=== PATIENT | male | born 1945 | race Caucasian/White ===

== ENCOUNTER 2021-03-31 12:26 | Outpatient (RCR) | payer MEDICARE | END 2021-04-03 | LOC: M PT 12:26 | PROVIDERS: ATTEND Internal Medicine Cardiovascular Disease | DX: I89.0 Lymphedema, not elsewhere classified (principal) ==

== ENCOUNTER → 2023-03-18 | Outpatient (REF) | payer MEDICARE | LOC: M SFHCPLAZ 07:09 | PROVIDERS: ATTEND Nurse Practitioner Family | DX: D48.9 Neoplasm of uncertain behavior, unspecified (principal) ==

== ENCOUNTER → 2023-05-26 | Outpatient (CLI) | payer MEDICARE ==
[~2023-05-26] MED LIST: ALFU10TA3 PO; AMLO2.5T3 PO; GLIM4TAB5 PO; HYDR12CA PO; IRBE300T25 PO; LEVO125T4 PO; METF10004 PO; ROSU10TA6 PO; SEMA0.257 SQ
== END ==
LOC: M ONCR 13:39
PROVIDERS: ATTEND General Practice
DX: C44.329 Squamous cell carcinoma of skin of other parts of face (principal); Z79.84 Long term (current) use of oral hypoglycemic drugs; Z79.899 Other long term (current) drug therapy

== ENCOUNTER 2023-06-01 13:38 | Outpatient (RCR) | payer MEDICARE | END 2023-06-02 | LOC: M ONCR 13:38 | PROVIDERS: ATTEND General Practice | DX: Z51.0 Encounter for antineoplastic radiation therapy (principal); C44.329 Squamous cell carcinoma of skin of other parts of face ==

== ENCOUNTER 2023-07-01 13:56 | Outpatient (RCR) | payer MEDICARE | END 2023-07-03 | LOC: M ONCR 13:56 | PROVIDERS: ATTEND General Practice | DX: Z51.0 Encounter for antineoplastic radiation therapy (principal); C44.519 Basal cell carcinoma of skin of other part of trunk ==

== ENCOUNTER 2023-07-18 13:57 | Outpatient (RCR) | payer MEDICARE ==
[~2023-07-18 13:57] MED LIST changes: -ROSU10TA6 PO; +ROSU10TA61 PO
== END 2023-08-02 ==
LOC: M ONCR 13:57
PROVIDERS: ATTEND General Practice
DX: Z51.0 Encounter for antineoplastic radiation therapy (principal); C44.329 Squamous cell carcinoma of skin of other parts of face

== ENCOUNTER → 2023-08-17 | Outpatient (CLI) | payer MEDICARE | LOC: M ONCR 14:53 → EDSTATUS 16:10 → M ONCR 09-02 16:10 | PROVIDERS: ATTEND General Practice | DX: Z08 Encounter for follow-up examination after completed treatment for malignant neoplasm (principal); Z85.828 Personal history of other malignant neoplasm of skin; Z92.3 Personal history of irradiation; L59.8 Other specified disorders of the skin and subcutaneous tissue related to radiation ==

== ENCOUNTER → 2023-12-26 | Outpatient (CLI) | payer MEDICARE ==
[~2023-12-26] MED LIST changes: +ALFU10TA23 PO; -ALFU10TA3 PO
== END ==
LOC: M PLARAD 10:22
PROVIDERS: ATTEND Dermatology
DX: C44.329 Squamous cell carcinoma of skin of other parts of face (principal)
CPT/HCPCS: 78816; A9552

== ENCOUNTER → 2024-01-30 | Outpatient (REF) | payer MEDICARE | LOC: M SFHCDERM 07:58 | PROVIDERS: ATTEND Nurse Practitioner Family | DX: C44.41 Basal cell carcinoma of skin of scalp and neck (principal) ==

== ENCOUNTER → 2024-07-30 | Outpatient (CLI) | payer MEDICARE | LOC: M PLARAD 12:46 | PROVIDERS: ATTEND Dermatology | DX: C44.329 Squamous cell carcinoma of skin of other parts of face (principal) | CPT/HCPCS: 78816; A9552 ==